=== PATIENT | female | born 1945 | race Caucasian/White ===

== ENCOUNTER 2016-07-11 12:33 | Inpatient (IN) | payer MEDICARE ==
[2016-07-11] MEDS ORDERED: ONDANSETRON 4 MG/2ML 2 ML VIAL ONE (13:13)
[2016-07-11] MEDS ORDERED: MORPHINE SULFATE 4 MG/ML SYRINGE ONE (13:13)
[2016-07-11 13:49] LABS: ABSOLUTE NEUTROPHIL COUNT 6.8 K/mm3 (1.8-7.7); BASO % 0.2 % (0.2-1.0); EOS % 0.1 % (0.9-2.9); HEMATOCRIT 37.5 % (37.0-47.0); HEMOGLOBIN 12.5 gm/l (12.0-16.0); IMM NEUT% 0.4 % (0-1); LYMPH # 0.9 (1.0-4.8); LYMPH % 10.3 % (15-45); MEAN CELL VOLUME 91.5 fl (81.0-99.0); MEAN CORPUSCULAR HEMOGLOBIN 30.5 pg (27.0-31.0); MEAN CORPUSCULAR HGB CONC 33.3 g/dl (33.0-37.0); MEAN PLATELET VOLUME 9.3 fl (7.4-10.4); MONO # 0.6 (0.0-0.8); MONO % 7.3 % (4-12); NEUT % 81.7 % (43-75); PLATELET COUNT 323 K/mm3 (130-400); RED CELL DISTRIBUTION WIDTH 13.2 % (11.5-14.5)
--- NOTE | 2016-07-11 13:50 | RAD ---
CHEST-AP BEDSIDE COMPARISON: None HISTORY: New right hip fracture. Preop chest. FINDINGS: Views: Frontal chest. Lungs: The lungs are clear. Heart and vessels: Normal Trachea and bronchi: Normal Mediastinum and lissette: Normal Costophrenic sulci: Normal Chest wall and bones: Normal Upper abdomen: Normal. IMPRESSION: Negative one view chest.
[2016-07-11 14:04] LABS: ALB/GLOB RATIO 1.4 (>1.0); ALBUMIN 4.4 gm/dL (3.5-5.7); CALCIUM 9.7 mg/dL (8.6-10.3)
[2016-07-11] MEDS ORDERED: BLISTEX LIPSTICK 1 EACH TP PRN (16:08)
[2016-07-11] MEDS ORDERED: SODIUM CHLORIDE 0.9% 100 ML IV PRN (16:08)
[2016-07-11] MEDS ORDERED: HYDROMORPHONE HCL 1 MG/ML SYRINGE IV PRN (16:11)
[2016-07-11] MEDS ORDERED: HYDROMORPHONE HCL 1 MG/ML SYRINGE IV SCH (16:15)
[2016-07-11 16:28] VITALS: BMI 25.5
[2016-07-11] MEDS ORDERED: PUMP TUBING ONE (16:39)
[2016-07-11] MEDS: PANTOPRAZOLE SODIUM 40 MG VIAL IV SCH (16:44)
[2016-07-11] MEDS: SODIUM CHLORIDE 0.9% 1,000 ML IV SCH (16:46)
[2016-07-11 17:01] LABS: PH,URINE 6.5 (5.0-8.0); SPECIFIC GRAVITY 1.015 (1.001-1.030); URINE BILIRUBIN NEGATIVE (NEGATIVE); URINE BLOOD 1+ (NEGATIVE); URINE GLUCOSE (UA) NEGATIVE (NEGATIVE); URINE LEUKOCYTE ESTERASE NEGATIVE (NEGATIVE); URINE NITRITE NEGATIVE (NEGATIVE); URINE PROTEIN NEGATIVE (NEGATIVE); URINE UROBILINOGEN NORMAL (0-1 mg/dl)
[2016-07-11] MEDS ORDERED: LORAZEPAM 2 MG/ML 1ML SDV IV ONE ×2 (17:06→17:57)
[2016-07-11] MEDS ORDERED: LORAZEPAM 2 MG/ML 1ML SDV IV PRN (17:18)
[2016-07-11 17:32] LABS: URINE APPEARANCE CLEAR; URINE COLOR YELLOW
[2016-07-11 17:34] LABS: URINE EPITHELIAL CELLS 0-2 /hpf; URINE RBC 0-2 /hpf; URINE WBC 0-2 /hpf
[2016-07-11 17:35] LABS: URINE BACTERIA RARE
[2016-07-11] MEDS ORDERED: NALOXONE HCL 0.4 MG/ML VIAL ONE (17:35)
[2016-07-11] MEDS ORDERED: EtCO2 Monitoring Set ONE ×2 (17:39→22:09)
--- NOTE | 2016-07-11 18:03 | CONS ---
KENRICK VAZQUEZ [id number] DATE OF CONSULTATION: 07/11/2016 HISTORY OF PRESENT ILLNESS: Kenrick Vazquez is a 70-year-old female with a right femoral neck fracture. She is seen at the request of the emergency department physician Dr. Agustin Palmer. She was examined in the presence of her and the remainder of her family and they provided a history. She is unable to verbalize her situation. HISTORY OF INJURY: History given by the family members is that she got out of bed yesterday, fell to the ground and was unable to arise. Today she was unable to get out of bed and was then transported to the [facility] and evaluated by the emergency department physician, Dr. Palmer, who obtained x-rays and diagnosed a right femoral neck fracture. He then contacted me for an orthopedic consultation. PAST MEDICAL HISTORY: 1. Dementia. 2. Parkinson's disease. PAST SURGICAL HISTORY: Appendectomy. SOCIAL HISTORY: She does not smoke or drink. ALLERGIES: No known drug allergies. MEDICATIONS: Sinemet and occasional aspirin. PHYSICAL EXAMINATION: A focused physical examination is performed. GENERAL: The patient is asleep at the time of the examination. She had been medicated and was not arousable. EXTREMITIES: The overall appearance of the right lower extremity was unremarkable. There was no significant shortening noted. . She had intact neurovascular status and good peripheral pulses. I was able to mobilize the hip to a mild degree without awakening the patient. IMAGING: The x-rays were reviewed and there was evidence of a right femoral neck fracture, with some degree of displacement. DIAGNOSTIC IMPRESSION: Subcapital fracture right hip. PLAN: I discussed with the patient's family the various treatment options. They are Je[employer]'s [employer]es and do not want her to receive any blood or blood products. I discussed percutaneous pinning if I can get a satisfactory closed reduction, or a hemiarthroplasty. I had advised them that hemiarthroplasty would be the preferred modality, however, because of blood loss they are requesting that I try an alternative procedure. In deference to their wishes, I will try closed reduction. I have explained the surgery to the patient's family in detail, along with the expected benefits, potential risks, complications and alternative methods of treatment. They appear to understand and request to proceed with surgery. The patient will be evaluated by Dr. Schwartz, Hospitalist, and she is tentatively scheduled for surgery tomorrow at 0900.
--- NOTE | 2016-07-11 18:06 | CT ---
HEAD W/O CON: 07/11/2016 5:10 PM CLINICAL HISTORY: Ground-level fall. Change in mentation.. COMPARISON: 03/31/2014 TECHNIQUE: Contiguous axial 5 mm images from skull base to the vertex were obtained without IV contrast. Sagittal and coronal reformations with bone algorithm images were also obtained at this time. CT DI:: 27.4 DLP: 579.6 FINDINGS: Infarct: None Extra axial spaces: Normal in size and morphology for the patient's age. Hemorrhage: None. Ventricular system: Normal in size and morphology for the patient's age. Basal cisterns: Normal. Cerebral parenchyma: Normal. Midline shift: None. Cerebellum: Normal. Brainstem: Normal. OTHER: Calvarium: Normal. Vascular system: Normal. Visualized Paranasal sinuses and Mastoid air cells: Clear. Visualized Orbits and regional soft tissues: Normal. IMPRESSION: No acute intracranial process. Findings were called to Dr. Schwartz at approximately 1759 hours on 07/11/2016.
--- NOTE | 2016-07-11 18:38 | HP ---
[facility] [id number] ADMIT DATE: 07/11/2016 CHIEF COMPLAINT: Ground level fall and hip pain. HISTORY OF PRESENT ILLNESS: Kenrick is a 70-year-old female with fairly advanced Parkinson's disease. She lives at home with her and family. Yesterday (07/10/2016), she had an unwitnessed fall. Her had left her and she was in bed in the bedroom. From the next room he heard a thump and came back in and found her on the ground. There was no loss of consciousness. She actually spent the rest of the day getting around with her walker and saying "ow". She did seem to have increasing pain, so they brought her to her regular physician's office today for evaluation. X-rays there did show a subcapital hip fracture on the right and she was subsequently brought to the emergency room for further evaluation. FURTHER HISTORY: She did have a bladder infection diagnosed a week or so ago and just finished her antibiotics yesterday. She does have Sinemet prescribed, though she self-discontinued this several weeks ago. It is unclear whether it was actually helping. REVIEW OF SYSTEMS: Unobtainable, as the patient is nonverbal at this point, but as per family she has had no recent fevers, chills, headache, visual symptoms, chest pain, shortness of breath, cough, nausea, vomiting or diarrhea. PAST MEDICAL HISTORY: 1. Parkinson's disease. She is followed by Dr. Adair of neurology. Her last visit with him was in April of this year. 2. Dementia. This is apparently associated with the Parkinsonism. This is moderate in severity. The family does note that her functional and cognitive capacities have been markedly declining in the last several weeks. PAST SURGICAL HISTORY: Appendectomy. ALLERGIES: None. CURRENT MEDICATIONS: None. She was on Sinemet 25/100 one by mouth three times a day up until several weeks ago. She occasionally takes aspirin. SOCIAL HISTORY: She lives with her , son and daughter. No alcohol, tobacco or drug use. They are Latter day. FAMILY HISTORY: Father at 81 of an PR. Mother at 92 of old age. OBJECTIVE: VITAL SIGNS: Stable. She is afebrile. GENERAL: This is a thin elderly female. She does mumble and murmur, though does not answer questions otherwise. She is in bed with hunched shoulders and clenched fists. She is otherwise in no acute distress. HEENT: Benign. Oropharynx is moist. NECK: Supple. No bruits. LUNGS: Clear. HEART: Regular. ABDOMEN: Soft. EXTREMITIES: Right leg is shortened and internally rotated. NEUROLOGIC: She is neurovascularly intact. IMAGIN. X-rays show a minimally displaced subcapital fracture on the right. 2. Chest x-ray is clear. LABS: Urinalysis is pending. CBC with a white count of 8.4, hemoglobin 12.5, hematocrit 37.5 and platelets of 323. Chemistry panel; sodium 131, potassium 4.4, chloride 99, carbon dioxide 26, BUN of 13, creatinine 1.1 and glucose of 113. ASSESSMENT: 1. Right-sided subcapital hip fracture after a ground level fall. 2. Advanced Parkinson's disease, with associated dementia. 3. Recent UTI. PLAN: She is admitted to the floor. Will obtain a repeat UTI to document clearing. Otherwise she appears to be cleared for surgery. Dr. Berrios of orthopedics has already evaluated her and is planning on taking her to the operating room tomorrow. I did have a long discussion with the patient's and her family regarding difficulties they may encounter in the postoperative period. She is already in what sounds like a fairly significant decline in her Parkinsonism and most likely will have significantly lower function after this surgery than before. DVT prophylaxis is not indicated, as the patient is going to surgery tomorrow. IV medications for pain and nausea as needed. IV fluids. Supportive care otherwise. Further care is dictated by clinical course. cc: Dr. Theodore Hurd
[2016-07-11] MEDS: MORPHINE SULFATE 2 MG/ML SYRINGE IV PRN ×2 (20:31→21:57)
[2016-07-11] MEDS: ONDANSETRON 4 MG/2ML 2 ML VIAL IV PRN (21:09)
[2016-07-11] MEDS ORDERED: SODIUM CL FOR INHALATION 3 ML DOSE ONE (22:17)
[2016-07-11] MEDS ORDERED: RACEMIC EPINEPHRINE 2.25% 0.5 ML DOSE NEB ONE (22:30)
[2016-07-12] MEDS: SODIUM CHLORIDE 0.9% 1,000 ML IV SCH ×3 (00:10→19:04)
[2016-07-12] MEDS ORDERED: SODIUM CHLORIDE 0.9% 500 ML IV SCH (00:19)
[2016-07-12] MEDS: MORPHINE SULFATE 2 MG/ML SYRINGE IV PRN ×2 (02:54→20:46)
[2016-07-12 06:29] LABS: HEMATOCRIT 35.3 % (37.0-47.0); HEMOGLOBIN 11.5 gm/l (12.0-16.0); MEAN CELL VOLUME 92.2 fl (81.0-99.0); MEAN CORPUSCULAR HGB CONC 32.6 g/dl (33.0-37.0); RED CELL DISTRIBUTION WIDTH 13.3 % (11.5-14.5)
[2016-07-12 06:36] LABS: CALCIUM 8.6 mg/dL (8.6-10.3)
--- NOTE | 2016-07-12 08:33 | PDOC36 ---
Provider Note Subject: AMS Note: Shortly after admit on 07/11/16 pt with several episodes manifested by rigid extension of arms with shaking lasting 10-20 seconds. Onset shortly after tx with dilaudid. Subsequently had stridorous breathing. Stat Head CT negative for bleed. Given ativan and transferred to ICU. TC to neurology- no association between advanced PD and sz. Lit review shows assoc between dilaudid and sz, but neurology thought unlikely. Suspect episodes were not true sz but cannot definitively r/o. Most likely aspiration with associated posturing. After ativan tx and transfer to ICU no further episodes- VSS with no further evidence of respiratory compromise. Long family conference- decision to stay here and tx supportively overnight and re-eval in AM. Surgery postponed. Code status clarified with family and advanced directive- DNR/I. Greater than 60 min at bedside providing critical care.
--- NOTE | 2016-07-12 10:06 | PDOC43 ---
- Subjective Chief Complaint: Hip Fx, Parkinsons, Dementia Stable overnight. No further posturing. Somnolent. Some snoring. - Objective Vital Signs Temperature 99 F 07/12/16 07:00 Pulse Rate 92 07/12/16 09:00 Respiratory Rate 18 07/12/16 09:00 Blood Pressure 99/49 07/12/16 09:00 O2 Saturation by Pulse Oximetry 97 07/12/16 09:00 Oxygen Delivery Method Nasal Cannula Oxygen Flow Rate 2 Intake and Output 07/11/16 07/12/16 07/13/16 06:59 06:59 06:59 Intake Total 2060 Output Total 520 120 Balance 1540 -120 General: Other (Somnolent.) Lungs: Diminished at Bases Cardiovascular: Regular Rate and Rhythm Abdomen: Soft, Normal Bowel Sounds, Non-Distended, No Rebounding Extremities: Normal Pulses, Other (N/V intact.), No Edema Neurological: Other (Somnolent/obtunded. Snoring. Rigid/flexed B UE's noted. Resting tremor noted. Cogwheeling with passive movement.) Laboratory 07/12/16 05:45 07/12/16 05:45 07/12/16 05:45 RBC 3.83 L MCHC 32.6 L Current Medications: Current meds reviewed in EMR. - Problems: Assessment/Plan (1) Hip fracture, right Qualifiers: Fracture type: closed Status: AcuteAssessment/Plan: R femoral neck fx d/t GLF on 07/10/16. Not cleared for surgery- see below. (2) Aspiration into respiratory tract Status: AcuteAssessment/Plan: Multiple episodes of rigid/shaking UE posturing yesterday PM after dilaudid tx. Some stridorous breathing afterwards responded well to single dose racemic epi. Head CT negative. Discussed with neuro- doubt true sz but cannot r/o definitively. No further episodes since yesterday. CXR this AM concerning for L sided pna- await final radiology overread.- will check blood cx and start abx. (3) Parkinson disease Status: ChronicAssessment/Plan: Advanced. History of significant decline in last several weeks/months- increased hallucinations/delusions, decreased functional ability, etc. Pt self d /c'ed Sinamet about 2 weeks ago. Now obtunded/sedated and difficult to tell if progression of PD exacerbated by d/c Sinamet vs delerim d/t hip fx in context of advancing dementia vs sedative effects from pain meds. Suspect multifactoral. At this point will try to minimize sedatives/narcotics. Supportive care. Consider swallow eval if pt wakes up enough. If no improvement in MS by tomorrow will discuss again w/ family-- transition to hospice vs transfer to tertiary hospital vs continued supportive care. Hip surgery on hold. (4) Dementia Qualifiers: Dementia behavioral disturbance: with behavioral disturbance Status: ChronicAssessment/Plan: As above. VTE Prophylaxis Contraindications: Medical contraindication VTE Prophylaxis: Contraindicated d/t possible surgery. Disposition: Unknown.
[2016-07-12] MEDS ORDERED: ALBUTEROL NEB 2.5 MG/3 ML VIAL.NEB NEB PRN (10:07)
[2016-07-12] MEDS ORDERED: MORPHINE SULFATE 2 MG/ML SYRINGE IV PRN (10:08)
[2016-07-12] MEDS: LEVOFLOXACIN 500 MG/D5W 100 ML 500 MG in Premix (D5W) 100 ml 1 EACH IV SCH (10:38)
[2016-07-12] MEDS: PIPERACILLIN-TAZO PREMIX BAG 3.375 G in Premix (D5W) 50 ml 1 EACH IV SCH ×3 (11:50→23:49)
--- NOTE | 2016-07-12 14:02 | RAD ---
07/12/2016 1:47 PM CHEST-AP BEDSIDE History: Hypoxia, possible aspiration. Comparison: 07/11/2016 Findings: Single AP view of the chest is obtained. The lungs demonstrates obscuration of the left hemidiaphragm worrisome for effusion. Dense retrocardiac opacity is also present extending into the midlung. Findings would be compatible with aspiration pneumonitis though pneumonia with parapneumonic effusion could've similar appearance. Patient is rotated to the left. EKG leads overlie the chest. The cardiomediastinal silhouette is unremarkable.. The osseous structures are intact.. IMPRESSION: Dense airspace disease is noted in the retrocardiac distribution and left midlung which could relate to aspiration pneumonitis. Effusion is likely present. Please see discussion above.
[2016-07-12] MEDS: PANTOPRAZOLE SODIUM 40 MG VIAL IV SCH (16:16)
[2016-07-13] MEDS: MORPHINE SULFATE 2 MG/ML SYRINGE IV PRN ×5 (01:10→23:06)
[2016-07-13] MEDS: SODIUM CHLORIDE 0.9% 1,000 ML IV SCH ×4 (03:39→18:31)
[2016-07-13] MEDS: PIPERACILLIN-TAZO PREMIX BAG 3.375 G in Premix (D5W) 50 ml 1 EACH IV SCH ×4 (06:02→23:41)
[2016-07-13 06:14] LABS: ABSOLUTE NEUTROPHIL COUNT 7.4 K/mm3 (1.8-7.7); BASO % 0.2 % (0.2-1.0); EOS % 0.3 % (0.9-2.9); HEMATOCRIT 32.3 % (37.0-47.0); HEMOGLOBIN 10.5 gm/l (12.0-16.0); IMM NEUT% 0.4 % (0-1); LYMPH # 1.2 (1.0-4.8); LYMPH % 13.3 % (15-45); MEAN CELL VOLUME 92.8 fl (81.0-99.0); MEAN CORPUSCULAR HEMOGLOBIN 30.2 pg (27.0-31.0); MEAN CORPUSCULAR HGB CONC 32.5 g/dl (33.0-37.0); MEAN PLATELET VOLUME 9.8 fl (7.4-10.4); MONO # 0.6 (0.0-0.8); MONO % 6.3 % (4-12); NEUT % 79.5 % (43-75); PLATELET COUNT 230 K/mm3 (130-400); RED CELL DISTRIBUTION WIDTH 13.2 % (11.5-14.5)
[2016-07-13 06:25] LABS: ALB/GLOB RATIO 1.2 (>1.0); ALBUMIN 2.9 gm/dL (3.5-5.7); CALCIUM 8.3 mg/dL (8.6-10.3)
--- NOTE | 2016-07-13 07:47 | RAD ---
07/13/2016 7:43 AM CHEST-AP BEDSIDE History: Follow-up possible aspiration pneumonitis. Comparison: 07/12/2016 Findings: Single AP view of the chest is obtained. The lungs demonstrate improvement in the left-sided retrocardiac airspace disease though this is still mild to moderately present. Hemidiaphragm is now better visualized which may indicate decrease in left-sided effusion, or relate to the improvement in the airspace disease. The cardiomediastinal silhouette is unremarkable.. The osseous structures are intact.. IMPRESSION: Moderate improvement in the patient's left-sided airspace disease and possible effusion. Again findings could relate to aspiration pneumonitis.
--- NOTE | 2016-07-13 10:47 | PDOC43 ---
- Subjective Subjective: Reports Other (Patient not arouseable, unable to verbalize. Current neurological status is as described by Dr. Schwartz.) - Objective Vital Signs Temperature 99 F 07/12/16 07:00 Pulse Rate 92 07/12/16 09:00 Respiratory Rate 18 07/12/16 09:00 Blood Pressure 99/49 07/12/16 09:00 O2 Saturation by Pulse Oximetry 97 07/12/16 09:00 Oxygen Delivery Method Nasal Cannula Oxygen Flow Rate 2 Laboratory 07/12/16 05:45 07/12/16 05:45 07/12/16 05:45 RBC 3.83 L MCHC 32.6 L Active Medication Orders Category Date Time Status Albuterol Sulf Neb 2.5mg/3ml [Ventolin Inhalation Med 07/12/16 10:07 Ordered Solution (Dose)] 2.5 mg NEB Q2H PRN Levofloxacin 500 mg/D5w 100 ml [Levaquin IV 500 mg] 500 Med 07/12/16 10:15 Ordered mg Premix (D5W) 100 ml 1 each IV Q24H Lip [place] [Blistex] Med 07/11/16 16:08 Active 1 each TP PRN PRN Morphine Sulfate Med 07/11/16 18:04 Active 2 mg IV Q1H PRN Ondansetron 4 mg/2ml Vial [Zofran] Med 07/11/16 16:11 Active 4 mg IV Q3H PRN Pantoprazole Sodium [Protonix] Med 07/11/16 16:15 Active 40 mg IV Q24H Piperacillin-Tazo Premix Bag [Zosyn 3.375 G] 3.375 g Med 07/12/16 12:00 Ordered Premix (D5W) 50 ml 1 each IV Q6HR Sodium Chloride 0.9% 1,000 ml Med 07/11/16 16:15 Active IV 125 mls/hr Sodium Chloride 0.9% 100 ml Med 07/11/16 16:08 Active IV PRN Sodium Chloride 0.9% Flush [Normal Saline 10ml Flush] Med 07/11/16 16:08 Active 10 - 50 ml IV PRN PRN Sodium Chloride 0.9% Flush [Normal Saline 10ml Flush] Med 07/11/16 17:00 Active 10 ml IV Q8HR Intake and Output 07/11/16 07/12/16 07/13/16 06:59 06:59 06:59 Intake Total 0 Output Total 520 120 Balance 1540 -120 General: Afebrile, Other (Patient evaluated in ICU.) Skin: Normal Color, Warm Psych/Mental Status: Other (Patient not arouseable.) Peripheral Pulses: Right Posterior Tibialis: 3+/4+, Right Dorsalis Pedis: 3+/4+ - Right Lower Extremity Capillary Refill: < 3 Seconds (No active, voluntary motor function.) - Problems (1) Hip fracture, right Qualifiers: Fracture type: closed Status: Acute - Disposition Surgical treatment put on hold due to patient's neurological status. I shall speak with and discuss status with him. Defer to hospitalist's recommendation regarding surgical intervention.
[2016-07-13] MEDS: LEVOFLOXACIN 500 MG/D5W 100 ML 500 MG in Premix (D5W) 100 ml 1 EACH IV SCH (10:54)
--- NOTE | 2016-07-13 10:59 | PDOC43 ---
- Subjective Subjective: Reports Pain Tolerable (Pt.'s pain level manageable. She is beginning to verbalize and shows signs of awakening.) - Objective Vital Signs Temperature 99.2 F 07/13/16 07:00 Pulse Rate 83 07/13/16 09:00 Respiratory Rate 19 07/13/16 09:00 Blood Pressure 130/76 07/13/16 09:00 O2 Saturation by Pulse Oximetry 94 07/13/16 09:00 Oxygen Delivery Method Room Air Oxygen Flow Rate 0 Laboratory 07/13/16 05:20 07/13/16 05:20 07/13/16 05:20 RBC 3.48 L MCHC 32.5 L Calcium 8.3 L Total Protein 5.4 L Albumin 2.9 L Active Medication Orders Category Date Time Status Albuterol Sulf Neb 2.5mg/3ml [Ventolin Inhalation Med 07/12/16 10:07 Active Solution (Dose)] 2.5 mg NEB Q2H PRN Levofloxacin 500 mg/D5w 100 ml [Levaquin IV 500 mg] 500 Med 07/12/16 10:30 Active mg Premix (D5W) 100 ml 1 each IV Q24H Lip [place] [Blistex] Med 07/11/16 16:08 Active 1 each TP PRN PRN Morphine Sulfate Med 07/12/16 20:37 Active 1 - 2 mg IV Q4H PRN Ondansetron 4 mg/2ml Vial [Zofran] Med 07/11/16 16:11 Active 4 mg IV Q3H PRN Pantoprazole Sodium [Protonix] Med 07/11/16 16:15 Active 40 mg IV Q24H Piperacillin-Tazo Premix Bag [Zosyn 3.375 G] 3.375 g Med 07/12/16 12:00 Active Premix (D5W) 50 ml 1 each IV Q6HR Sodium Chloride 0.9% 1,000 ml Med 07/11/16 16:15 Active IV 125 mls/hr Sodium Chloride 0.9% 100 ml Med 07/11/16 16:08 Active IV PRN Sodium Chloride 0.9% Flush [Normal Saline 10ml Flush] Med 07/11/16 16:08 Active 10 - 50 ml IV PRN PRN Sodium Chloride 0.9% Flush [Normal Saline 10ml Flush] Med 07/11/16 17:00 Active 10 ml IV Q8HR Intake and Output 07/12/16 07/13/16 07/14/16 06:59 06:59 06:59 Intake Total 2060 2907 Output Total 520 1220 Balance 1540 1687 Skin: Normal Color Psych/Mental Status: Other (Experiencing right hip pain, controlled with medication.) Peripheral Pulses: Right Posterior Tibialis: 3+/4+, Right Dorsalis Pedis: 3+/4+ - Right Lower Extremity Gross Sensation to Light Touch: Present: Medial Plantar Nerve, Lateral Plantar Nerve, Sural Nerve, Saphenous Nerve Capillary Refill: < 3 Seconds (Patient experiencing pain with hip motion.) - Problems (1) Hip fracture, right Qualifiers: Fracture type: closed Status: Acute - Disposition Hospitalist feels that patient is now candidate for surgical procedure to treat right hip fracture. Long discussion with family about surgery options. PARQ conference held. Family is having private conference regarding whether to consent for surgical treatment and they have not made a final decision as yet. They are requesting anesthesia consult. I will speak with them later today about further treatment. Appreciate hospitalist input and assistance.
[2016-07-13] MEDS ORDERED: IV START KIT ONE (11:28)
--- NOTE | 2016-07-13 13:14 | PDOC43 ---
- Subjective Chief Complaint: Hip Fx, Parkinsons, Dementia Woke up yesterday afternoon. Able to intermittently answer questions. Good pain control with low dose MSO4. - Objective Vital Signs Temperature 99.6 F 07/13/16 12:00 Pulse Rate 94 07/13/16 12:00 Respiratory Rate 14 07/13/16 12:00 Blood Pressure 114/99 07/13/16 12:00 O2 Saturation by Pulse Oximetry 94 07/13/16 12:00 Oxygen Delivery Method Room Air Oxygen Flow Rate 0 Intake and Output 07/12/16 07/13/16 07/14/16 06:59 06:59 06:59 Intake Total 2060 2907 Output Total 520 1220 Balance 1540 1687 General: Other (Eyes closed, occ answers questions. whisper voice.), No Acute Distress HEENT: Atraumatic, Mucous membr. moist/pink Lungs: Clear to Auscultation Bilaterally Cardiovascular: Regular Rate and Rhythm Abdomen: Soft, Normal Bowel Sounds, Non-Distended Extremities: Normal Pulses, No Edema Laboratory 07/13/16 05:20 07/13/16 05:20 Current Medications: Current meds reviewed in EMR. - Problems: Assessment/Plan (1) Hip fracture, right Qualifiers: Fracture type: closed Status: AcuteAssessment/Plan: R femoral neck fx d/t GLF on 07/10/16. Cleared for surgery- see below. Long discussion with ortho/family- will plan on attempted hip pin this afternoon. If unable to align appropriately for successful pin will not proceed with hemiarthroplasty and instead transition to non-invasive tx. (2) Aspiration into respiratory tract Status: AcuteAssessment/Plan: Multiple episodes of rigid/shaking UE posturing 07/11 PM after dilaudid tx. Some stridorous breathing afterwards responded well to single dose racemic epi. Head CT negative. Discussed with neuro- doubt true sz but cannot r/o definitively. No further episodes since 07/11. CXR 07/12 AM with L sided pna- improved on CXR this AM. Appears stable now with stable vitals, no O2 requirement, no resp distress and benign exam. Con't Zosyn/levaquin for presumed asp pna. (3) Parkinson disease Status: ChronicAssessment/Plan: Advanced. History of significant decline in last several weeks/months- increased hallucinations/delusions, decreased functional ability, etc. Pt self d /c'ed Sinamet about 2 weeks ago. Now obtunded/sedated and difficult to tell if progression of PD exacerbated by d/c Sinamet vs delerim d/t hip fx in context of advancing dementia vs sedative effects from pain meds. Suspect multifactoral. At this point will con't to minimize sedatives/narcotics. Supportive care. Plan swallow eval post-op before initiating po. (4) Dementia Qualifiers: Dementia behavioral disturbance: with behavioral disturbance Status: ChronicAssessment/Plan: As above. VTE Prophylaxis Contraindications: Medical contraindication VTE Prophylaxis: Contraindicated d/t surgery. Disposition: Unknown.
[2016-07-13] MEDS ORDERED: SPINAL PROCEDURAL TRAY 1 EACH ONE (13:25)
[2016-07-13] MEDS ORDERED: TETRACAINE ISP ONE (13:26)
[2016-07-13] MEDS ORDERED: HETASTARCH 6% IV ONE (13:31)
[2016-07-13] MEDS ORDERED: NS IV ONE (13:31)
[2016-07-13] MEDS ORDERED: PROPOFOL 20 ML IV ONE (13:34)
[2016-07-13] MEDS ORDERED: LIDOCAINE 2% (PRES FREE) 5 ML VIAL ONE (13:34)
[2016-07-13] MEDS ORDERED: KETAMINE HCL UD SYRINGE 100 MG/2 ML IV ONE (13:38)
[2016-07-13] MEDS ORDERED: MIDAZOLAM HCL 1 MG/ML 2ML VIAL ONE (13:38)
[2016-07-13] MEDS ORDERED: PHENYLEPHRINE 10 MG/1 ML (1%) VIAL ONE (13:38)
[2016-07-13] MEDS ORDERED: CEFAZOLIN SODIUM 1,000 MG VIAL ONE (15:51)
[2016-07-13] MEDS ORDERED: NALOXONE HCL 0.4 MG/ML VIAL IV PRN (16:25)
[2016-07-13] MEDS ORDERED: ONDANSETRON 4 MG/2ML 2 ML VIAL IV PRN (16:25)
[2016-07-13] MEDS ORDERED: MORPHINE SULFATE 4 MG/ML SYRINGE IV PRN (16:25)
[2016-07-13] MEDS ORDERED: FENTANYL 100 MCG/2 ML VIAL IV PRN (16:25)
[2016-07-13] MEDS ORDERED: ATROPINE SULFATE 0.4 MG/1 ML VIAL IV PRN (16:25)
[2016-07-13] MEDS ORDERED: SODIUM CHLORIDE 0.9% 1,000 ML IV SCH (16:30)
[2016-07-13] MEDS ORDERED: CEFAZOLIN SODIUM 1 GRAM PREMIX 1 G in Premix (D5W) 50 ml 1 EACH IV ONE (17:01)
[2016-07-13] MEDS ORDERED: ACETAMINOPHEN 160 MG/5 ML ORAL.SOLN UDCUP PO PRN (17:01)
[2016-07-13] MEDS: PANTOPRAZOLE SODIUM 40 MG VIAL IV SCH (17:45)
--- NOTE | 2016-07-13 17:47 | RAD ---
HIP RIGHT 2 VIEWS PORTABLE HISTORY: Intraoperative fluoroscopy for right hip fracture. COMPARISONS: Plain films 07/11/2016 FINDINGS: 2 overhead fluoroscopic images are provided for review. These images demonstrate placement of 3 are slightly threaded screws across the patient's femoral neck fracture. Study is limited with respect osseous detail given fluoroscopic technique. Fluoroscopy time: 76.3 seconds IMPRESSION: Intraoperative fluoroscopy as above. Please see orthopedist note regarding the procedure for further details.
[2016-07-13] MEDS ORDERED: PUMP TUBING ONE (18:02)
[2016-07-14] MEDS: SODIUM CHLORIDE 0.9% 1,000 ML IV SCH ×2 (03:20→16:41)
[2016-07-14] MEDS: MORPHINE SULFATE 2 MG/ML SYRINGE IV PRN ×2 (04:50→09:39)
[2016-07-14] MEDS: PIPERACILLIN-TAZO PREMIX BAG 3.375 G in Premix (D5W) 50 ml 1 EACH IV SCH ×3 (05:29→18:09)
[2016-07-14 05:52] LABS: HEMATOCRIT 30.6 % (37.0-47.0); HEMOGLOBIN 10.2 gm/l (12.0-16.0); MEAN CELL VOLUME 91.9 fl (81.0-99.0); MEAN CORPUSCULAR HEMOGLOBIN 30.6 pg (27.0-31.0); MEAN CORPUSCULAR HGB CONC 33.3 g/dl (33.0-37.0); RED CELL DISTRIBUTION WIDTH 12.6 % (11.5-14.5)
[2016-07-14 06:04] LABS: ALB/GLOB RATIO 1.1 (>1.0); ALBUMIN 2.7 gm/dL (3.5-5.7); CALCIUM 8.1 mg/dL (8.6-10.3)
--- NOTE | 2016-07-14 07:10 | PCMBPN ---
Brief Post Op Note: Date of Procedure: 07/13/16 Start Time: 1556 Preoperative Diagnosis: 1.Right femoral neck fracture Postoperative Diagnosis: 1. [Same] Procedure: Closed reduction of fracture with percutaneous pinning using three cancellous screws Surgeon: Bill Berrios DO Assist:First Roberto assist Anesthesia: Spinal with sedation, Frank Leon CRNA Findings: Femoral neck fracture with angulation Condition: Satisfactory and stable Complications: None IV Fluids: 300 mLs of Heta and 500 ml NS Urine Output: 150ml mLs Estimated Blood Loss: 50 mLs Tourniquet Time: [N/A] Specimens: [N/A] Implants: 3 cancellous screws Drains: [N/A]
--- NOTE | 2016-07-14 07:31 | PDOC43 ---
- Subjective Subjective: Reports Pain Tolerable (Patient unable to verbalize her pain level, but appears mor comfortable since her surgery.) - Objective Vital Signs Temperature 99.0 F 07/14/16 02:56 Pulse Rate 84 07/14/16 02:56 Respiratory Rate 16 07/14/16 02:56 Blood Pressure 151/56 07/14/16 02:56 O2 Saturation by Pulse Oximetry 96 07/14/16 02:56 Oxygen Delivery Method Room Air Oxygen Flow Rate 0 Laboratory 07/14/16 05:15 07/14/16 05:15 07/14/16 05:15 RBC 3.33 L Estimated GFR 82 H Calcium 8.1 L Total Protein 5.2 L Albumin 2.7 L Active Medication Orders Category Date Time Status Albuterol Sulf Neb 2.5mg/3ml [Ventolin Inhalation Med 07/12/16 10:07 Active Solution (Dose)] 2.5 mg NEB Q2H PRN Carbidopa/Levodopa 25/100 [Sinemet 25/100] Med 07/14/16 09:00 Ordered 1 each PO TID Enoxaparin Sodium [Lovenox] Med 07/14/16 09:00 Active 40 mg SUB-Q Q24H Levofloxacin 500 mg/D5w 100 ml [Levaquin IV 500 mg] 500 Med 07/12/16 10:30 Active mg Premix (D5W) 100 ml 1 each IV Q24H Lip [place] [Blistex] Med 07/11/16 16:08 Active 1 each TP PRN PRN Morphine Sulfate Med 07/12/16 20:37 Active 1 - 2 mg IV Q4H PRN Ondansetron 4 mg/2ml Vial [Zofran] Med 07/11/16 16:11 Active 4 mg IV Q3H PRN Pantoprazole Sodium [Protonix] Med 07/11/16 16:15 Active 40 mg IV Q24H Piperacillin-Tazo Premix Bag [Zosyn 3.375 G] 3.375 g Med 07/12/16 12:00 Active Premix (D5W) 50 ml 1 each IV Q6HR Sodium Chloride 0.9% 1,000 ml Med 07/13/16 17:15 Active IV 125 mls/hr Sodium Chloride 0.9% 1,000 ml Med 07/13/16 16:30 Active IV 25 mls/hr Sodium Chloride 0.9% 100 ml Med 07/11/16 16:08 Active IV PRN Sodium Chloride 0.9% Flush [Normal Saline 10ml Flush] Med 07/11/16 16:08 Active 10 - 50 ml IV PRN PRN Sodium Chloride 0.9% Flush [Normal Saline 10ml Flush] Med 07/11/16 17:00 Active 10 ml IV Q8HR Intake and Output 07/13/16 07/14/16 07/15/16 06:59 06:59 06:59 Intake Total 2907 4019 Output Total 1220 2705 Balance 1687 1314 Skin: Normal Color, Warm, Dry, No Rash, No Erythema Psych/Mental Status: Other (Patient has severe dementia.) Peripheral Pulses: Right Posterior Tibialis: 3+/4+, Right Dorsalis Pedis: 3+/4+ - Right Lower Extremity Incision: Dressing Clean/Dry/Intact Capillary Refill: < 3 Seconds - Problems (1) Hip fracture, right Qualifiers: Fracture type: closed Status: Acute - Disposition POD #1 closed reduction of right hip fracture with percutaneous pinning. Dressing not disturbed today. Will commence DVT prophylaxis this morning. Discussed case with Dr. Frost, who will take over her care. Spoke with Dr. Schwartz about pt.'s ortho status. PT referral made. Appreciate hospitalist input and assistance.
--- NOTE | 2016-07-14 07:42 | RAD ---
07/14/2016 7:37 AM CHEST-AP BEDSIDE History: Follow-up pneumonia Comparison: 07/13/2016 Findings: Single AP view of the chest is obtained. The lungs the straight continued improvement in the patient's left mid and lower lung pneumonia. Tiny effusion is likely present. Right lung is clear. The cardiomediastinal silhouette is unremarkable.. The osseous structures demonstrate diffuse osteopenia but otherwise intact. IMPRESSION: Continued improvement in the patient's left-sided pneumonia.
--- NOTE | 2016-07-14 08:31 | OP ---
KENRICK CONTEH DATE OF PROCEDURE: July 13, 2016 SURGEON: Bill Berrios D.O. MANAGER COMMUNITY DEVELOPMENT: Collins Miles ADULT DAYCARE COORDINATOR: Pato Leon C.R.N.A. ANESTHESIA: Spinal with IV sedation. PREOPERATIVE DIAGNOSIS: Right femoral neck fracture. POSTOPERATIVE DIAGNOSIS: Right femoral neck fracture. SURGERY PERFORMED: CLOSED REDUCTION OF FRACTURE WITH PERCUTANEOUS PINNING USING THREE CANCELLOUS SCREWS. INDICATIONS FOR SURGERY: This is a 70-year-old female with an angulated fracture of the right femoral neck secondary to a fall that occurred on July 10, 2016. The patient was felt to be unstable for surgery and today her condition had improved, and she is now being considered a surgical candidate for treatment of her femoral neck fracture. The surgery itself has been explained to the patient's family in detail along with expected benefits, potential risks and complications and alternative methods of treatment. They appeared to understand and requested we proceed with the surgery. The patient is not able to give informed consent due to her level of dementia. DESCRIPTION OF SURGICAL PROCEDURE: A 70-year-old female was taken to the operating suite and placed on the operating table. There under imaging intensification, the closed reduction of the right femoral neck fracture was performed. We had a satisfactory improvement noted on both the AP and lateral planes. We then placed it on the fracture table and positioned it properly and the right hip was prepped and draped in the usual fashion. We then again monitored our position with image intensification, and nia the appropriate template for insertion of the screws. A lateral incision was then made just distal to the greater trochanter. Sharp dissection was carried down through the subcutaneous tissues. We then incised the fascia and using a periosteal elevator raised the soft tissues off the bone. We then placed a guide wire across the femoral neck into the femoral head. We then monitored our position with image intensification on both AP and lateral planes. It was repositioned until we got a satisfactory position. We then used our guide wires and inserted two additional parallel pins into the femoral neck and head. All screws used were 7.3 mm diameter Synthes cannulated screws. We used a short thread. The first screw was 80 mm in length, the second was 85 mm in length and the third screw 95 mm in length. Measurements were then taken. Based on our measurements, we then drove the outer cortex to the lateral cortex and then inserted our screw initially with power and then it was tightened manually. We now had a stable construct. Images were taken during our screw insertion and final images were taken after we had to remove the guide wires and felt we had a satisfactory reduction and satisfactory position of the screws. The wound was irrigated with normal saline solution. The fascia was closed with #0 Vicryl suture, subcutaneous tissues were closed with #3-0 and #2-0 Vicryl suture and the skin was closed with martha. Sterile dressing was placed over the wound. Patient was then taken from the fracture table to her bed and to intensive care unit for recovery in satisfactory and stable condition. Estimated blood loss 50 mL. There were no complications during the surgery.
[2016-07-14] MEDS ORDERED: ENOXAPARIN SODIUM 30 MG/0.3 ML SYRINGE SUB-Q SCH (09:00)
[2016-07-14] MEDS: ENOXAPARIN SODIUM 40 MG/0.4 ML SYRINGE SUB-Q SCH (09:39)
[2016-07-14] MEDS: LEVOFLOXACIN 500 MG/D5W 100 ML 500 MG in Premix (D5W) 100 ml 1 EACH IV SCH (09:39)
[2016-07-14] MEDS: CARBIDOPA/LEVODOPA 25/100 1 EACH TABLET PO SCH ×3 (09:40→20:30)
--- NOTE | 2016-07-14 10:43 | PDOC43 ---
- Subjective Chief Complaint: Hip Fx, Parkinsons, Dementia Did well overnight. Good pain control. Answers questions this AM- "Doing OK but could be better". No F/C. Subjective: Reports Pain Tolerable - Objective Vital Signs Temperature 99.4 F 07/14/16 07:30 Pulse Rate 87 07/14/16 07:30 Respiratory Rate 24 07/14/16 07:34 Blood Pressure 147/57 07/14/16 07:30 O2 Saturation by Pulse Oximetry 96 07/14/16 07:30 Oxygen Delivery Method Room Air Oxygen Flow Rate 0 Intake and Output 07/13/16 07/14/16 07/15/16 06:59 06:59 06:59 Intake Total 2907 4019 Output Total 1220 2705 Balance 1687 1314 General: Cooperative, Other (Eyes closed but answers questions.), No Acute Distress HEENT: Atraumatic Lungs: Clear to Auscultation Bilaterally Cardiovascular: Regular Rate and Rhythm Abdomen: Soft, Normal Bowel Sounds, No Tenderness, No Rebounding Extremities: Normal Cap Refill, Normal Pulses, No Edema Wound: Dressing Clean/Dry/Intact Laboratory 07/14/16 05:15 07/14/16 05:15 Current Medications: Current meds reviewed in EMR. - Problems: Assessment/Plan (1) Hip fracture, right Qualifiers: Fracture type: closed Status: AcuteAssessment/Plan: R femoral neck fx d/t GLF on 07/10/16. S/P closed reduction and pinning on . Doing well post-op. Anticipate difficult rehab given advance PD/dementia. (2) Aspiration into respiratory tract Status: AcuteAssessment/Plan: Multiple episodes of rigid/shaking UE posturing 07/11 PM after dilaudid tx. Some stridorous breathing afterwards responded well to single dose racemic epi. Head CT negative. Discussed with neuro- doubt true sz but cannot r/o definitively. No further episodes since 07/11. CXR / AM with L sided pna- improved on subsequent CXR. Appears stable now with stable vitals, no O2 requirement, no resp distress and benign exam. Con't Zosyn/levaquin for presumed asp pna. (3) Parkinson disease Status: ChronicAssessment/Plan: Advanced. History of significant decline in last several weeks/months- increased hallucinations/delusions, decreased functional ability, etc. Pt self d /c'ed Sinamet about 2 weeks ago. Difficult to tell if progression of PD exacerbated by d/c Sinamet. At this point will con't to minimize sedatives/ narcotics. Supportive care. Swallow eval ordered for today before initiating po. Plan to resume Sinamet when cleared for po. (4) Dementia Qualifiers: Dementia behavioral disturbance: with behavioral disturbance Status: ChronicAssessment/Plan: As above. VTE Prophylaxis Contraindications: Medical contraindication VTE Prophylaxis: Lovenox. Disposition: Unknown.
[2016-07-14] MEDS: D5 1/2NS with 20 mEq KCL 1,000 ML IV SCH ×2 (11:56→20:33)
[2016-07-14] MEDS ORDERED: BISACODYL 10 MG SUP PR PRN (15:49)
[2016-07-14] MEDS ORDERED: ENEMA--adult 1 EACH PR PRN (15:49)
[2016-07-14] MEDS: PANTOPRAZOLE SODIUM 40 MG VIAL IV SCH (16:03)
[2016-07-15] MEDS: PIPERACILLIN-TAZO PREMIX BAG 3.375 G in Premix (D5W) 50 ml 1 EACH IV SCH ×4 (00:05→17:40)
[2016-07-15] MEDS: D5 1/2NS with 20 mEq KCL 1,000 ML IV SCH ×3 (04:38→16:17)
[2016-07-15 05:34] LABS: HEMATOCRIT 30.2 % (37.0-47.0); HEMOGLOBIN 10.1 gm/l (12.0-16.0); MEAN CELL VOLUME 90.4 fl (81.0-99.0); MEAN CORPUSCULAR HEMOGLOBIN 30.2 pg (27.0-31.0); MEAN CORPUSCULAR HGB CONC 33.4 g/dl (33.0-37.0); RED CELL DISTRIBUTION WIDTH 12.6 % (11.5-14.5)
[2016-07-15 05:42] LABS: CALCIUM 8.2 mg/dL (8.6-10.3)
[2016-07-15] MEDS: ENOXAPARIN SODIUM 40 MG/0.4 ML SYRINGE SUB-Q SCH (08:49)
[2016-07-15] MEDS: CARBIDOPA/LEVODOPA 25/100 1 EACH TABLET PO SCH ×3 (08:50→21:55)
[2016-07-15] MEDS: LEVOFLOXACIN 500 MG/D5W 100 ML 500 MG in Premix (D5W) 100 ml 1 EACH IV SCH (09:57)
--- NOTE | 2016-07-15 14:22 | PDOC43 ---
- Subjective Chief Complaint: Hip Fx, Parkinsons, Dementia Subjective: Reports Pain Tolerable, Denies Tolerating Diet Well (poor PO intake) , Denies Fever - Objective Vital Signs Temperature 97.1 F 07/15/16 13:23 Pulse Rate 88 07/15/16 13:23 Respiratory Rate 18 07/15/16 13:23 Blood Pressure 130/76 07/15/16 13:23 O2 Saturation by Pulse Oximetry 98 07/15/16 13:23 Oxygen Delivery Method Room Air Oxygen Flow Rate 0 Intake and Output 07/14/16 07/15/16 07/16/16 06:59 06:59 06:59 Intake Total 4019 2857 Output Total 3282 3250 Balance 1314 -393 General: Alert, No Acute Distress HEENT: Mucous membr. moist/pink Lungs: Clear to Auscultation Bilaterally Cardiovascular: Regular Rate and Rhythm Abdomen: Soft, Normal Bowel Sounds, Non-Distended, No Tenderness Extremities: No Edema Skin: Warm, Dry, Intact Wound: Dressing Clean/Dry/Intact Laboratory 07/15/16 05:15 07/15/16 05:15 07/15/16 05:15 RBC 3.34 L Anion Gap 7 L Calcium 8.2 L Current Medications: Current meds reviewed in EMR. - Problems: Assessment/Plan (1) Hip fracture, right Qualifiers: Fracture type: closed Status: AcuteAssessment/Plan: R femoral neck fx d/t GLF on 07/10/16. S/P closed reduction and pinning on . Doing well post-op. Anticipate difficult rehab given advance PD/dementia. (2) Aspiration into respiratory tract Status: AcuteAssessment/Plan: Multiple episodes of rigid/shaking UE posturing 07/11 PM after dilaudid tx. Some stridorous breathing afterwards responded well to single dose racemic epi. Head CT negative. Discussed with neuro- doubt true sz but cannot r/o definitively. No further episodes since 07/11. CXR 4/ AM with L sided pna- improved on subsequent CXR. Appears stable now with stable vitals, no O2 requirement, no resp distress and benign exam. Cont. Zosyn/levaquin for presumed asp pna with bacterial component. ST changed diet to soft mech. and nectar thick liquids. (3) Parkinson disease Status: ChronicAssessment/Plan: Advanced. History of significant decline in last several weeks/months- increased hallucinations/delusions, decreased functional ability, etc. Pt self d /c'ed Sinemet about 2 weeks ago. Difficult to tell if progression of PD exacerbated by d/c Sinamet. At this point will cont. to minimize sedatives/ narcotics. Supportive care. Swallow eval recommended switch to mech soft and nectar thick liquids. Resume Sinemet and switch to PO meds. (4) Dementia Qualifiers: Dementia behavioral disturbance: with behavioral disturbance Status: ChronicAssessment/Plan: As above. (5) Hypokalemia, inadequate intake Status: AcuteAssessment/Plan: improving with change in IVF VTE Prophylaxis Contraindications: Medical contraindication VTE Prophylaxis: Lovenox. Disposition: SNF when able to take adequate amounts by [place]
[2016-07-15] MEDS: HYDROCODONE/ACETAMINOPHEN 5/325MG TABLET PO PRN ×2 (14:27→19:24)
[2016-07-15] MEDS: PANTOPRAZOLE SODIUM 40 MG VIAL IV SCH (16:08)
--- NOTE | 2016-07-15 17:48 | PDOC43 ---
- Subjective Findings: Patient resting in bed, minimal response Subjective: Reports Pain Tolerable - Objective Vital Signs Temperature 97.2 F 07/15/16 17:00 Pulse Rate 81 07/15/16 17:00 Respiratory Rate 18 07/15/16 17:00 Blood Pressure 120/72 07/15/16 17:00 O2 Saturation by Pulse Oximetry 98 07/15/16 17:00 Oxygen Delivery Method Room Air Oxygen Flow Rate 0 Laboratory 07/15/16 05:15 07/15/16 05:15 07/15/16 05:15 RBC 3.34 L Anion Gap 7 L Calcium 8.2 L Active Medication Orders Category Date Time Status Albuterol Sulf Neb 2.5mg/3ml [Ventolin Inhalation Med 07/12/16 10:07 Active Solution (Dose)] 2.5 mg NEB Q2H PRN Bisacodyl [Dulcolax] Med 07/14/16 15:49 Active 10 mg [place] DAILY PRN Carbidopa/Levodopa 25/100 [Sinemet 25/100] Med 07/14/16 09:00 Active 1 each PO TID D5 1/2NS with 20 mEq KCL [D51/2NS with 20 mEq KCL] 1, Med 07/15/16 14:14 Active 000 ml IV 100 mls/hr Enoxaparin Sodium [Lovenox] Med 07/14/16 09:00 Active 40 mg SUB-Q Q24H Hydrocodone Bit/Acetaminophen [[place] 5/325] Med 07/15/16 14:22 Active 1 - 2 tab PO Q4H PRN Levofloxacin 500 mg/D5w 100 ml [Levaquin IV 500 mg] 500 Med 07/12/16 10:30 Active mg Premix (D5W) 100 ml 1 each IV Q24H Lip [place] [Blistex] Med 07/11/16 16:08 Active 1 each TP PRN PRN Morphine Sulfate Med 07/12/16 20:37 Active 1 - 2 mg IV Q4H PRN Na Phos,M-B/Na Phos,Di-Ba [Fleet Adult Enema] Med 07/14/16 15:49 Active 1 each [place] DAILY PRN Ondansetron 4 mg/2ml Vial [Zofran] Med 07/11/16 16:11 Active 4 mg IV Q3H PRN Pantoprazole Sodium [Protonix] Med 07/11/16 16:15 Active 40 mg IV Q24H Piperacillin-Tazo Premix Bag [Zosyn 3.375 G] 3.375 g Med 07/12/16 12:00 Active Premix (D5W) 50 ml 1 each IV Q6HR Sodium Chloride 0.9% 100 ml Med 07/11/16 16:08 Active IV PRN Sodium Chloride 0.9% Flush [Normal Saline 10ml Flush] Med 07/11/16 16:08 Active 10 - 50 ml IV PRN PRN Sodium Chloride 0.9% Flush [Normal Saline 10ml Flush] Med 07/11/16 17:00 Active 10 ml IV Q8HR Intake and Output 07/13/16 07/14/16 07/15/16 23:59 23:59 23:59 Intake Total 4159 2707 2825 Output Total 3085 2245 2400 Balance 1074 462 425 General: Afebrile Lungs: Normal Air Movement Skin: Normal Color, Warm, Dry - Right Lower Extremity Incision: Dressing Clean/Dry/Intact, Well Approximated, [place] Intact, No Erythema, No Rash, No Ecchymosis - Disposition POD #2 closed reduction of right hip fracture with percutaneous pinning. Dressing clean. 1. Physical Therapy: TTWB with walker, recognize patient has difficulty with compliance. 2. Pain Control: Current measures adequate 3. DVT Prophylaxis: Per Hospitalist 4. Disposition: SNF vs home pending PT/OT rehab eval. 5. Medical Issues: per hospitalist PAB
[2016-07-16] MEDS: PIPERACILLIN-TAZO PREMIX BAG 3.375 G in Premix (D5W) 50 ml 1 EACH IV SCH ×4 (00:18→18:02)
[2016-07-16] MEDS: D5 1/2NS with 20 mEq KCL 1,000 ML IV SCH ×3 (02:28→14:31)
[2016-07-16] MEDS: CARBIDOPA/LEVODOPA 25/100 1 EACH TABLET PO SCH ×3 (08:54→21:23)
[2016-07-16] MEDS: ENOXAPARIN SODIUM 40 MG/0.4 ML SYRINGE SUB-Q SCH (08:55)
[2016-07-16] MEDS: HYDROCODONE/ACETAMINOPHEN 5/325MG TABLET PO PRN ×2 (08:55→21:23)
[2016-07-16 10:01] LABS: CALCIUM 8.7 mg/dL (8.6-10.3)
[2016-07-16] MEDS: LEVOFLOXACIN 500 MG/D5W 100 ML 500 MG in Premix (D5W) 100 ml 1 EACH IV SCH (10:23)
--- NOTE | 2016-07-16 12:15 | PDOC43 ---
- Subjective Chief Complaint: Hip Fx, Parkinsons, Dementia Doing better today. Still poor po intake but improved. Some choking with po this AM. Subjective: Reports Pain Tolerable, Denies Adequate Oral Intake, Denies Shortness of Breath, Denies Cough, Denies Chest Pain, Denies Abdominal Pain, Denies Nausea, Denies Vomiting, Denies Fever, Denies Chills - Objective Vital Signs Temperature 97.4 F 07/16/16 11:30 Pulse Rate 82 07/16/16 11:30 Respiratory Rate 20 07/16/16 11:30 Blood Pressure 113/69 07/16/16 11:30 O2 Saturation by Pulse Oximetry 98 07/16/16 11:30 Oxygen Delivery Method Room Air Oxygen Flow Rate 0 Intake and Output 07/15/16 07/16/16 07/17/16 06:59 06:59 06:59 Intake Total 2857 2723 Output Total 3250 1850 Balance -393 873 General: Cooperative, No Acute Distress Lungs: Clear to Auscultation Bilaterally Cardiovascular: Regular Rate and Rhythm Abdomen: Soft, Normal Bowel Sounds, Non-Distended, No Tenderness Extremities: Normal Pulses, No Edema Wound: Dressing Clean/Dry/Intact Laboratory 07/16/16 09:15 Current Medications: Current meds reviewed in EMR. - Problems: Assessment/Plan (1) Hip fracture, right Qualifiers: Fracture type: closed Status: AcuteAssessment/Plan: R femoral neck fx d/t GLF on 07/10/16. S/P closed reduction and pinning on . Doing well post-op. Anticipate difficult rehab given advance PD/dementia. (2) Aspiration into respiratory tract Status: AcuteAssessment/Plan: Multiple episodes of rigid/shaking UE posturing 07/11 PM after dilaudid tx. Some stridorous breathing afterwards responded well to single dose racemic epi. Head CT negative. Discussed with neuro- doubt true sz but cannot r/o definitively. No further episodes since 07/11. CXR 07/12 AM with L sided pna- improved on subsequent CXR. Appears stable now with stable vitals, no O2 requirement, no resp distress and benign exam. Cont. Zosyn/levaquin for presumed asp pna with bacterial component. ST changed diet to soft mech. and nectar thick liquids. (3) Parkinson disease Status: ChronicAssessment/Plan: Advanced. History of significant decline in last several weeks/months- increased hallucinations/delusions, decreased functional ability, etc. Pt self d /c'ed Sinemet about 2 weeks ago. Difficult to tell if progression of PD exacerbated by d/c Sinamet. Sinamet resumed 4/3 with some improvement in rigidity, etc. Supportive care. Swallow eval recommended switch to mech soft and nectar thick liquids. Remove marinelli today. (4) Dementia Qualifiers: Dementia behavioral disturbance: with behavioral disturbance Status: ChronicAssessment/Plan: As above. VTE Prophylaxis Contraindications: Medical contraindication VTE Prophylaxis: Lovenox. Disposition: Anticipate d/c to SNF in 1-2 days.
[2016-07-16] MEDS: ONDANSETRON 4 MG/2ML 2 ML VIAL IV PRN (12:46)
[2016-07-16] MEDS: PANTOPRAZOLE SODIUM 40 MG VIAL IV SCH (15:26)
[2016-07-17] MEDS: PIPERACILLIN-TAZO PREMIX BAG 3.375 G in Premix (D5W) 50 ml 1 EACH IV SCH ×3 (00:34→11:51)
[2016-07-17] MEDS: D5 1/2NS with 20 mEq KCL 1,000 ML IV SCH ×2 (00:38→10:43)
[2016-07-17 06:04] LABS: HEMATOCRIT 30.7 % (37.0-47.0); HEMOGLOBIN 10.3 gm/l (12.0-16.0); MEAN CELL VOLUME 90.8 fl (81.0-99.0); MEAN CORPUSCULAR HEMOGLOBIN 30.5 pg (27.0-31.0); MEAN CORPUSCULAR HGB CONC 33.6 g/dl (33.0-37.0)
[2016-07-17 06:34] LABS: CALCIUM 8.7 mg/dL (8.6-10.3)
[2016-07-17] MEDS: CARBIDOPA/LEVODOPA 25/100 1 EACH TABLET PO SCH ×3 (08:34→20:50)
[2016-07-17] MEDS: ENOXAPARIN SODIUM 40 MG/0.4 ML SYRINGE SUB-Q SCH (08:34)
[2016-07-17] MEDS: LEVOFLOXACIN 500 MG/D5W 100 ML 500 MG in Premix (D5W) 100 ml 1 EACH IV SCH (10:36)
--- NOTE | 2016-07-17 13:43 | PDOC43 ---
- Subjective Chief Complaint: Hip Fx, Parkinsons, Dementia Continues to improve. Subjective: Reports Pain Tolerable, Reports Tolerating Diet Well, Denies Adequate Oral Intake, Denies Shortness of Breath, Denies Cough, Denies Chest Pain, Denies Abdominal Pain, Denies Nausea, Denies Vomiting, Denies Fever, Denies Chills - Objective Vital Signs Temperature 97.6 F 07/17/16 11:42 Pulse Rate 87 07/17/16 11:42 Respiratory Rate 17 07/17/16 11:42 Blood Pressure 124/72 07/17/16 11:42 O2 Saturation by Pulse Oximetry 98 07/17/16 11:42 Oxygen Delivery Method Room Air Oxygen Flow Rate 0 Intake and Output 07/16/16 07/17/16 07/18/16 06:59 06:59 06:59 Intake Total 2723 1744 Output Total 1850 1800 200 Balance 873 -56 -200 General: Alert, Cooperative, No Acute Distress HEENT: Atraumatic Lungs: Clear to Auscultation Bilaterally Cardiovascular: Regular Rate and Rhythm Abdomen: Soft, Normal Bowel Sounds, Non-Distended, No Tenderness Extremities: Normal Cap Refill, Normal Pulses, No Edema Laboratory 07/17/16 05:30 07/17/16 05:30 Current Medications: Current meds reviewed in EMR. - Problems: Assessment/Plan (1) Hip fracture, right Qualifiers: Fracture type: closed Status: AcuteAssessment/Plan: R femoral neck fx d/t GLF on 07/10/16. S/P closed reduction and pinning on . Doing well post-op. Anticipate difficult rehab given advance PD/dementia. (2) Aspiration into respiratory tract Status: AcuteAssessment/Plan: Multiple episodes of rigid/shaking UE posturing 07/11 PM after dilaudid tx. Some stridorous breathing afterwards responded well to single dose racemic epi. CXR 4 / AM with L sided pna- improved on subsequent CXR. Appears stable now with stable vitals, no O2 requirement, no resp distress and benign exam. Cont. Zosyn/ levaquin for total of 7 days for presumed asp pna with bacterial component. Con' t aspiration precautions and diet as per ST. (3) Parkinson disease Status: ChronicAssessment/Plan: Advanced. History of significant decline in last several weeks/months- increased hallucinations/delusions, decreased functional ability, etc. Pt self d /c'ed Sinemet about 2 weeks ago. Difficult to tell if progression of PD exacerbated by d/c Sinamet. Sinamet resumed 4/3 with some improvement in rigidity, etc. Supportive care. (4) Dementia Qualifiers: Dementia behavioral disturbance: with behavioral disturbance Status: ChronicAssessment/Plan: As above. VTE Prophylaxis Contraindications: Medical contraindication VTE Prophylaxis: Lovenox. Disposition: Anticipate d/c to SNF in 1-2 days.
[2016-07-17] MEDS: PANTOPRAZOLE SODIUM 40 MG VIAL IV SCH (16:18)
[2016-07-18] MEDS: ENOXAPARIN SODIUM 40 MG/0.4 ML SYRINGE SUB-Q SCH (08:36)
[2016-07-18] MEDS: CARBIDOPA/LEVODOPA 25/100 1 EACH TABLET PO SCH ×3 (08:36→20:48)
[2016-07-18] MEDS: LEVOFLOXACIN 250 MG TABLET PO SCH (11:40)
--- NOTE | 2016-07-18 12:25 | PDOC43 ---
- Subjective Chief Complaint: Hip Fx, Parkinsons, Dementia Patient reports feeling better. Did get up to commode with assist. Hasn't had BM yet. - Objective Vital Signs Temperature 97.9 F 07/18/16 11:32 Pulse Rate 96 07/18/16 11:32 Respiratory Rate 18 07/18/16 11:32 Blood Pressure 127/75 07/18/16 11:32 O2 Saturation by Pulse Oximetry 97 07/18/16 11:32 Oxygen Delivery Method Room Air Oxygen Flow Rate 0 Vital Signs Last 12 Hours Temp Pulse Resp BP Pulse Ox 07/18/16 11:32 97.9 F 96 18 127/75 97 07/18/16 08:00 97.9 F 96 16 158/93 94 07/18/16 03:27 98.7 F 104 20 147/85 97 07/18/16 01:35 18 Intake and Output 07/16/16 07/17/16 07/18/16 23:59 23:59 23:59 Intake Total 2409 1426 60 Output Total 2350 680 525 Balance 59 746 -465 General: Alert, Cooperative, No Acute Distress HEENT: Atraumatic Lungs: Clear to Auscultation Bilaterally (CXR) Cardiovascular: Regular Rate and Rhythm Abdomen: Soft, Normal Bowel Sounds, Non-Distended, No Tenderness Extremities: Other (dressing CDI,), No Edema Neurological: Normal Speech (much improved), Other (speech clear, alertness much improved. Answers generally appropriately. Eye contact good.) Laboratory 07/17/16 05:30 07/17/16 05:30 Current Medications: Current meds reviewed in EMR. Active Medications Acetaminophen/Hydrocodone Bitart (Rankin 5/325) 1 - 2 tab PO Q4H PRN PRN Reason: Pain Last Admin: 07/16/16 21:23 Dose: 1 tab Albuterol Sulfate (Ventolin Inhalation Solution (Dose)) 2.5 mg NEB Q2H PRN PRN Reason: Wheezing Bisacodyl (Dulcolax) 10 mg MT DAILY PRN PRN Reason: Constipation Last Admin: 07/16/16 10:07 Dose: 10 mg Carbidopa/Levodopa (Sinemet 25/100) 1 each PO TID COR[facility] Last Admin: 07/18/16 08:36 Dose: 1 each Enoxaparin Sodium (Lovenox) 40 mg SUB-Q Q24H [facility] Last Admin: 07/18/16 08:36 Dose: 40 mg Sodium Chloride (Sodium Chloride 0.9%) 100 mls @ 25 mls/hr IV PRN PRN PRN Reason: Flush Levofloxacin (Levaquin) 500 mg PO Q24H [facility] Last Admin: 07/18/16 11:40 Dose: 500 mg Ondansetron HCl (Zofran) 4 mg IV Q3H PRN PRN Reason: Nausea/Vomiting Last Admin: 07/16/16 12:46 Dose: 4 mg Pantoprazole Sodium (Protonix) 40 mg IV Q24H [facility] Last Admin: 07/17/16 16:18 Dose: 40 mg Petrolatum/Paraffin/Mineral Oil (Blistex) 1 each TP PRN PRN PRN Reason: Dry and/or chapped lips Last Admin: 07/12/16 18:25 Dose: 1 applic Sodium Biphosphate/Sodium Phosphate (Fleet Adult Enema) 1 each MT DAILY PRN PRN Reason: Constipation Last Admin: 07/17/16 09:52 Dose: 1 each Sodium Chloride (Normal Saline 10ml Flush) 10 - 50 ml IV PRN PRN PRN Reason: IV Flush Last Admin: 07/17/16 16:18 Dose: 10 ml Sodium Chloride (Normal Saline 10ml Flush) 10 ml IV Q8HR [facility] Last Admin: 07/18/16 08:36 Dose: 10 ml - Problems: Assessment/Plan (1) Hip fracture, right Qualifiers: Encounter type: initial encounter Fracture type: closed Qualifier Code: (S72.001A) Fracture of unspecified part of neck of right femur, initial encounter for closed fracture Status: AcuteAssessment/Plan: R femoral neck fx d/t GLF on 07/10/16. S/P closed reduction and pinning on 07/13/16. Doing well post-op, anticipating SNF 07/19; appreciate therapy/ortho care (2) Hypokalemia, inadequate intake Status: AcuteAssessment/Plan: improved, but 3.5 (3) Aspiration into respiratory tract Qualifiers: Encounter type: initial encounter Qualifier Code: (T17.908A) Unspecified foreign body in respiratory tract, part unspecified causing other injury, initial encounter Status: AcuteAssessment/Plan: Multiple episodes of rigid/shaking UE posturing 07/11 PM after dilaudid tx. Some stridorous breathing afterwards responded well to single dose racemic epi. CXR 07/12 AM with L sided pna- improved on subsequent CXR. Appears stable now with stable vitals, no O2 requirement, no resp distress and benign exam. Anticipate recheck CXR. Cont. Zosyn/levaquin ,now just levaquin for presumed asp pna with bacterial component. Con't aspiration precautions and diet as per ST. (4) Parkinson disease Status: ChronicAssessment/Plan: parkinsonian vs PD; Advanced. History of significant decline in last several weeks/months- increased hallucinations/delusions, decreased functional ability, etc. Pt self d/c'ed Sinemet about 2 weeks ago. Difficult to tell if progression of PD exacerbated by d/c Sinemet. Sinamet resumed 07/14 with some improvement in rigidity, etc. Supportive care. (5) Dementia Qualifiers: Dementia behavioral disturbance: with behavioral disturbance Status: ChronicAssessment/Plan: As above. VTE Prophylaxis Contraindications: Medical contraindication VTE Prophylaxis: Lovenox. Disposition: Anticipate d/c to SNF in 1 day, working on BM
[2016-07-18] MEDS: LACTULOSE 20 G/30 ML UDCUP PO SCH (12:27)
[2016-07-18] MEDS: SENNOSIDES 8.6 MG TABLET PO SCH (12:27)
--- NOTE | 2016-07-18 12:57 | RAD ---
Exam: Portable chest COMPARISON: Exams dating back to 07/11/2016 INDICATION: Follow-up aspiration. FINDINGS: Semierect AP portable view of the chest at 1235 hours again demonstrates low lung volumes. Asymmetric left basilar parenchymal opacities have slightly improved since the 07/14/2016 exam. Right lung remains clear. Cardiac silhouette is within normal limits. Sclerotic density within the right humeral neck is again noted and presumably a bone island. Bones of the chest wall are osteopenic but otherwise unremarkable. 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
[2016-07-18] MEDS: PANTOPRAZOLE SODIUM 40 MG VIAL IV SCH (16:29)
[2016-07-19] MEDS: LACTULOSE 20 G/30 ML UDCUP PO SCH (09:33)
[2016-07-19] MEDS: ENOXAPARIN SODIUM 40 MG/0.4 ML SYRINGE SUB-Q SCH (09:34)
[2016-07-19] MEDS: CARBIDOPA/LEVODOPA 25/100 1 EACH TABLET PO SCH (09:34)
[2016-07-19] MEDS: LEVOFLOXACIN 250 MG TABLET PO SCH (09:34)
[2016-07-19] MEDS: SENNOSIDES 8.6 MG TABLET PO SCH (09:35)
--- NOTE | 2016-07-19 11:07 | PDOC43 ---
- Subjective Chief Complaint: Hip Fx, Parkinsons, Dementia pt asleep in room. appears comfortable. when roused she keeps eyes closed but responds with head nod yes to "doing ok" and no to "are you in pain." she refuses to respond to other questions. appears to be comfortable but is refusing to respond. Subjective: Reports Pain Tolerable, Reports Tolerating Diet Well, Reports Adequate Oral Intake, Reports Flatus, Reports Urinating Without Difficulty, Denies Bowel Movement, Denies Shortness of Breath, Denies Cough, Denies Chest Pain, Denies Nausea, Denies Vomiting, Denies Fever - Objective Vital Signs Temperature 98.8 F 07/19/16 07:00 Pulse Rate 98 07/19/16 07:00 Respiratory Rate 18 07/19/16 07:00 Blood Pressure 152/84 07/19/16 07:00 O2 Saturation by Pulse Oximetry 95 07/19/16 07:00 Oxygen Delivery Method Room Air Oxygen Flow Rate 0 Intake and Output 07/17/16 07/18/16 07/19/16 23:59 23:59 23:59 Intake Total 1426 120 0 Output Total 680 900 1 Balance 746 -780 -1 General: Alert, Cooperative (responding minimally. review with nurse diana much mroe cooperative earlier, but recent PT tired her out), No Acute Distress HEENT: Atraumatic, Mucous membr. moist/pink Lungs: Clear to Auscultation Bilaterally, Normal Air Movement, No Diminished at Bases Cardiovascular: Regular Rate and Rhythm, Normal S1, Normal S2, No Murmur, No Gallops, No Rubs Abdomen: Soft, Normal Bowel Sounds, Non-Distended, No Tenderness Extremities: No Cyanosis, No Edema, No Tenderness Skin: Warm, Dry, Intact Psych/Mental Status: Other (avoiding verbal responses. minimal response. apepars to be wilfully choosing not to participate in my interview) Laboratory 07/17/16 05:30 07/17/16 05:30 Current Medications: Current meds reviewed in EMR. - Problems: Assessment/Plan (1) Aspiration into respiratory tract Qualifiers: Encounter type: initial encounter Qualifier Code: (T17.908A) Unspecified foreign body in respiratory tract, part unspecified causing other injury, initial encounter Status: AcuteAssessment/Plan: Multiple episodes of rigid/shaking UE posturing 3/31 PM after dilaudid tx. has not had any further episodes like this Some stridorous breathing afterwards responded well to single dose racemic epi. CXR 4/ AM with L sided pna- improved on subsequent CXR. Appears stable now with stable vitals, no O2 requirement, no resp distress and benign exam. recheck CXR yesterday showed continued improvement. Cont. levaquin for risk of asp pna with bacterial component. Con't aspiration precautions and diet as per ST. (2) Hypokalemia, inadequate intake Status: AcuteAssessment/Plan: improved, but 3.5 (3) Hip fracture, right Qualifiers: Encounter type: initial encounter Fracture type: closed Qualifier Code: (S72.001A) Fracture of unspecified part of neck of right femur, initial encounter for closed fracture Status: AcuteAssessment/Plan: R femoral neck fx d/t GLF on 07/10/16. S/P closed reduction and pinning on 07/13/16. Doing well post-op, anticipating SNF today; appreciate therapy/ortho care (4) Parkinson disease Status: ChronicAssessment/Plan: parkinsonian vs PD; Advanced. History of significant decline in last several weeks/months- increased hallucinations/delusions, decreased functional ability, etc. Pt self d/c'ed Sinemet about 2 weeks ago. Difficult to tell if progression of PD exacerbated by d/c Sinemet. Sinamet resumed 07/14 with some improvement in rigidity, etc. Supportive care. (5) Dementia Qualifiers: Dementia behavioral disturbance: with behavioral disturbance Status: ChronicAssessment/Plan: I suspect her refusal to participate in my interview today is related to demtnia and fatigue from her PT this AM. seems to be at baseline, and is cooperative most of the time in past few days VTE Prophylaxis Contraindications: Medical contraindication VTE Prophylaxis: Lovenox. Disposition: Anticipate d/c to SNF today
[2016-07-19 14:29] VITALS: BP 123/71
--- NOTE | 2016-07-19 17:04 | DS ---
KENRICK CONTEH [id number] : 1945 DATE OF ADMISSION: July 11, 2016 DATE OF DISCHARGE: July 19, 2016 ADMIT DIAGNOSES: 1. Right-sided subcapital hip fracture after a ground level fall. 2. Advanced Parkinson's disease. 3. Dementia. 4. Recent urinary tract infection. DISCHARGE DIAGNOSES: 1. Right-sided subcapital hip fracture after a ground level fall. 2. Advanced Parkinson's disease. 3. Dementia. 4. Recent urinary tract infection. 5. Hypokalemia. 6. Aspiration into respiratory tract. PROCEDURES/IMAGING: The patient had: 1. Chest x-ray performed on July 11, 2016 showed no acute disease. 2. She had a repeat chest x-ray performed on July 12, 2016 after her aspiration event which showed dense airspace disease in the retrocardiac distribution. 3. Recurrent chest x-rays on July 13 as well as July 14, 2016 showed improvement of this and on July 18, 2016, it had been resolved. 4. A brain CT performed on July 11, 2016 showed no acute disease. 5. Hip x-ray performed on July 13, 2016 with intraoperative fluoroscopy for her repair. 6. Patient did have a right open reduction internal fixation of the hip on July 13, [address] Berrios. HISTORY AND PHYSICAL: Please see History and Physical dictated. In short, this is 70-year-old female with advanced Parkinson's who had stopped her Sinemet several months prior who had a ground level fall and pain in the right hip and was noted to have a right hip fracture and was brought to the operating room for repair on July 13, 2016. HOSPITAL COURSE: Hospital course by problems as follows: 1. Ground level fall with right hip fracture. Patient was followed by Dr. Berrios from orthopedics, and she did have a repair on July 13, 2016, open reduction internal fixation of this fracture. Patient was then followed by physical therapy and was slowly improving after this repair. Her progress has been hampered by her advanced Parkinson's but appears that the hip is doing better. Her pain was relatively well controlled with oral medications at time of discharge. 2. Aspiration event. Patient had an episode of rigidity in the arms and shaking in the upper extremities with some posturing on July 11, 2016 after some dilaudid administration. She had some stridorous breathing afterwards which was suspicious for aspiration event. Chest x-ray showed a likely retrocardiac aspiration pneumonia. Patient was started on antibiotics, Zosyn and Levaquin. This has been resolving throughout her hospital stay. She did get some nebulizers but has not required anything and she is breathing well at time of discharge. She is to continue her Levaquin for another seven days and then should be complete. She did not require any oxygen throughout her hospital stay. Last chest x-ray was performed on July 18, 2016 and showed resolving infiltrate. 3. Parkinson's disease. Patient has significant Parkinson's disease. She did stop her Sinemet prior to her fall by approximately two weeks to a month. This is unclear. Likely this contributed to her fall. Sinemet was restarted, and she seemed to be improving after restarting the Sinemet by time of discharge. 4. Dementia. Patient has significant dementia as well which also likely contributed to her fall. She had the one episode with the dilaudid administration which likely caused an aspiration event and thus dilaudid was held. She was given hydrocodone for pain control, and she seemed to do reasonably well with this. She has been having some occasional fatigue and refusal to participate in conversations after physical therapy. However, she seems to be at baseline and is typically cooperative for the past several days here in the hospital with the other hospital staff. 5. History of urinary tract infection. Patient apparently had a possible urinary tract infection prior to her admission. However, it appeared that urines were relatively clear and this would be covered with Levaquin so no changes were made. DISCHARGE MEDICATIONS: The patient was discharged with instructions to continue: 1. Levaquin 500 mg orally daily for seven more days. 2. Hydrocodone/acetaminophen 5/325 mg one to two tablets orally every four hours as needed for pain. 3. Carbidopa-levodopa 25/100 mg one tablet three times daily. 4. Albuterol nebs 2.5 mg/3 mL by nebulizer every four hours as needed for shortness of breath or wheezing. ACTIVITY: Touch down weightbearing only, as tolerated. She is tolerating physical therapy. DIET: Regular with honey thickened liquids. FOLLOW UP: The patient is to follow up with her primary care provider, Dr. Theodore Hurd, in approximately two weeks. She is also to follow up with Dr. Frost's PA, Jefferson Hammond, on July 28, 2016 at 2:00 p.m. CONDITION: Stable. DISPOSITION: To [facility] Cc: Theodore Hurd M.D.
== END 2016-07-19 15:30 | DRG 480 ==
LOC: ED 12:33 → UNDOADMIN 14:30 → MS 14:30 → ICU 18:01 → MS 07-14 14:30
PROVIDERS: ADMIT Family Medicine; ATTEND Family Medicine
PROC: 0QSB06Z Reposition Right Lower Femur with Intramedullary Internal Fixation Device, Open Approach (ICD-10-PCS; principal; 2016-07-13)
DX: S72.011A Unspecified intracapsular fracture of right femur, initial encounter for closed fracture (principal); J69.0 Pneumonitis due to inhalation of food and vomit; N39.0 Urinary tract infection, site not specified; W19.XXXA Unspecified fall, initial encounter; G20 Parkinson's disease; F02.80 Dementia in other diseases classified elsewhere, unspecified severity, without behavioral disturbance, psychotic disturbance, mood disturbance, and anxiety; E87.6 Hypokalemia